=== PATIENT | female | born 1985 | race Two or more races ===

== ENCOUNTER → 2017-11-03 | Outpatient (CLI) | payer BC | END | disposition home or self-care (01) | LOC: ECHO 12:44 | DX: R07.89 Other chest pain (principal); R06.00 Dyspnea, unspecified | CPT/HCPCS: 93017; 93306; 93350 ==

== ENCOUNTER → 2019-07-04 | Outpatient (CLI) | payer BC ==
[2019-07-04 15:59] LABS: BASO % 1 % (0-3); EOS # 0.1 x10^3/uL (0.0-0.7); EOS % 1 % (0-3); HEMATOCRIT 40.3 % (36.0-47.0); HEMOGLOBIN 13.8 g/dL (12.0-15.5); LYMPH # 2.2 x10^3/uL (1.0-4.8); LYMPH % 28 % (24-48); MEAN CORPUSCULAR HEMOGLOBIN 31 pg (25-35); MEAN CORPUSCULAR HGB CONC 34 g/dL (31-37); MEAN CORPUSCULAR VOLUME 90 fL (79-100); MONO # 0.4 x10^3/uL (0.0-1.1); MONO % 5 % (0-9); NEUT # 5.1 x10^3/uL (1.8-7.7); NEUT % 65 % (31-73); PLATELET COUNT 234 x10^3/uL (140-400); RED BLOOD COUNT 4.47 x10^6/uL (3.50-5.40); RED CELL DISTRIBUTION WIDTH 13.7 % (11.5-14.5); WHITE BLOOD COUNT 7.8 x10^3/uL (4.0-11.0)
[2019-07-04 16:28] LABS: CHOLESTEROL/HDL RATIO 4.6
[2019-07-04 16:36] LABS: FREE T4 1.02 ng/dL (0.76-1.46); THYROID STIM HORMONE (TSH) 2.126 uIU/mL (0.358-3.74)
== END | disposition home or self-care (01) ==
LOC: LAB 15:11
PROVIDERS: ATTEND Obstetrics & Gynecology
DX: E34.8 Other specified endocrine disorders (principal)
CPT/HCPCS: 36415; 80061; 84439; 84443; 85025

== ENCOUNTER → 2019-12-13 | Outpatient (CLI) | payer BC ==
--- NOTE | 2019-12-13 14:34 | RAD ---
EXAM: Obstetrics sonogram. HISTORY: Unsure dates. TECHNIQUE: Sonographic imaging of a gravid uterus was performed. COMPARISON: None. FINDINGS: There is a single intrauterine fetus in cephalic presentation with a normal heart rate of 139 bpm. There is normal body motion. There is a four-chamber heart. The stomach, kidneys, bladder, spine, brain, facial profile and extremities are unremarkable. There is a grade 1 posterior placenta without evidence of placenta previa. The anatomic fluid volume is normal. There is a three-vessel umbilical cord with normal insertion. The biparietal diameter is 4.04 cm, corresponding with 18 weeks and 2 days. The head circumference is 15.41 cm, corresponding with 18 weeks and 3 days. The abdominal circumference is 13.09 cm, corresponding with 18 weeks and 4 days. The femoral length is 3.0 cm, corresponding with 19 weeks and 2 days. The estimated gestational age patient combined also measurements is 18 weeks and 5 days and the estimated weight is 261 g. IMPRESSION: 1. Single intrauterine fetus with normal heart rate and an estimated gestational age of 18 weeks and 5 days based on ultrasound measurements. 2. Unremarkable anatomy survey. Electronically signed by: Terra Alejandro MD (12/13/2019 2:31 PM) [id number]
== END | disposition home or self-care (01) ==
LOC: US 11:57
PROVIDERS: ATTEND Obstetrics & Gynecology
DX: Z34.91 Encounter for supervision of normal pregnancy, unspecified, first trimester (principal); Z3A.18 18 weeks gestation of pregnancy
CPT/HCPCS: 76805